=== PATIENT | female | born 1965 | race Two or more races ===

== ENCOUNTER 2019-01-13 10:23 | Emergency (ER) | payer OTHER ==
[~2019-01-13] VITALS: Ht 154.9 cm; Wt 52.2 kg
[2019-01-13] MEDS ORDERED: KETOROLAC 60 MG/2 ML VIAL. IM ONE (11:15)
[2019-01-13] MEDS ORDERED: PROCHLORPERAZINE 10 MG/2 ML VIAL. IM ONE (11:15)
[2019-01-13] MEDS ORDERED: KETOROLAC 15 MG/ML VIAL. IM ONE (11:15)
[2019-01-13] MEDS ORDERED: diphenhydrAMINE 50 MG/ML VIAL IM ONE (11:15)
[2019-01-13] MEDS ORDERED: ONDANSETRON ODT 4 MG TAB.RAPDIS ONE (11:34)
--- NOTE | 2019-01-13 11:34 | PHYS DOC ---
Past History Past Medical History: Migraines, Other (13 Year history of bowel and bladder incontinence ) Past Surgical History: No Surgical History, Other Smoking: Non-smoker Alcohol Use: None Drug Use: None Adult General Chief Complaint Chief Complaint: HEADACHE HPI HPI Patient is a 53 year old Female with a past medical history of migraine headaches who presents with a headache. Ms. Smith started having signs of her typical migraine headache (seeing spots, hand numbness/tingling, nausea) last night, 01/12/19. She is usually able to take amitriptyline and it is abortive, but today she took one at 430A and 630A without relief. Her pain is located in the occipital region b/l, frontal region, and periorbital region and rated a 9/10. She has some radiation of pain down her neck but has full active ROM in her cervical spine. She denies chest pain, shortness of breath, and weakness. Her migraines are managed by her PCP Dr. Sena using amitriptyline and acupuncture. Review of Systems Review of Systems Constitutional: Denies fever or chills Eyes: Denies change in visual acuity, redness. [Admits to eye pain] HENT: Denies nasal congestion or sore throat Respiratory: Denies cough or shortness of breath Cardiovascular: No additional information not addressed in HPI GI: Denies abdominal pain, vomiting, bloody stools or diarrhea [Admits to nausea, bowel incontinence] : Denies dysuria or hematuria Musculoskeletal: Denies back pain or joint pain Neurologic: Denies focal weakness or sensory changes [Admits to Headache] All other systems were reviewed and found to be within normal limits, except as documented in this note. Family History Family History Mother of colon cancer at 77 years old. Father had prostate cancer. Current Medications Current Medications Current Medications Medications (Trade) Dose Ordered Sig/Kylah Start Time Stop Time Status Last Admin Dose Admin Diphenhydramine HCl (Benadryl) 25 mg 1X ONCE 01/13/19 11:15 01/13/19 11:16 DC 01/13/19 11:13 25 MG Ketorolac Tromethamine (Toradol 15mg Vial) 15 mg 1X ONCE 01/13/19 11:15 01/13/19 11:15 DC Ketorolac Tromethamine (Toradol Im) 30 mg 1X ONCE 01/13/19 11:15 01/13/19 11:16 DC 01/13/19 11:13 30 MG Prochlorperazine Edisylate (Compazine) 10 mg 1X ONCE 01/13/19 11:15 01/13/19 11:16 DC 01/13/19 11:13 10 MG Allergies Allergies Allergies Coded Allergies Type Severity Reaction Last Updated Verified No Known Drug Allergies 01/13/19 No Physical Exam Physical Exam Constitutional: Well developed, well nourished, in mild distress due to her pain. HENT: Normocephalic, atraumatic, bilateral external ears normal, oropharynx moist, no oral exudates, nose normal. Eyes: PERRLA, EOMI, conjunctiva normal, no discharge. Neck: Normal range of motion, no tenderness, supple, no stridor. Cardiovascular:Heart rate regular rhythm, no murmur Lungs & Thorax: Slight inspiratory wheezes appreciated on the right, left CTA. Abdomen: Bowel sounds normal, soft, no tenderness, no masses, no pulsatile masses. Skin: Warm, dry, no erythema, no rash. Extremities: No tenderness, no cyanosis, no clubbing, ROM intact, no edema. Neurologic: Alert and oriented X 3, normal motor function, normal sensory function, no focal deficits noted. CN II-XII Grossly intact b/l Current Patient Data Vital Signs Vital Signs Date Time Temp Pulse Resp B/P (MAP) Pulse Ox O2 Delivery O2 Flow Rate FiO2 01/13/19 10:35 98.6 53 20 99 Room Air EKG EKG [] Radiology/Procedures Radiology/Procedures [] Course & Med Decision Making Course & Med Decision Making Pertinent Labs and Imaging studies reviewed. (See chart for details) 53-year-old female with no migraines presenting with headache described this migraine as typical for her, she has no concerning symptoms for SAH or Meningitis, and had no abnormalities noted during the neurological assessment. She was prescribed 30 mg Toradol IM, 25 mg Benadryl IM, and 10 mg Compazine IM for her migraine headache and 4 mg Ondansetron ODT for nausea. Discussed the side effects of these medications with the patient and informed her that drowsiness was most likely. She stated that she has someone who can take her home later in the day. er course: pt felt better after er treatment. Dragon Disclaimer Dragon Disclaimer This electronic medical record was generated, in whole or in part, using a voice recognition dictation system. Departure Departure: Impression: Primary Impression: Migraine Disposition: 01 HOME, SELF-CARE Condition: IMPROVED Referrals: STEPHEN GOMEZ DO (PCP) BARBARA MONTOYA MD Jan 13, 2019 11:34
[2019-01-13] MEDS ORDERED: ONDANSETRON ODT 4 MG TAB.RAPDIS PO ONE (12:00)
[2019-01-13 12:15] VITALS: BP 101/64
== END 2019-01-13 12:25 | disposition home or self-care (01) ==
LOC: ER 10:23
DX: G43.909 Migraine, unspecified, not intractable, without status migrainosus (principal)
CPT/HCPCS: 96372; 99284; J0780; J1200; J1885; Q0162